=== PATIENT | female | born 1945 | race Asian ===

== ENCOUNTER 2021-04-09 17:39 | Emergency (ER) | payer OTHER ==
[2021-04-16 15:08] LABS: PLATELET COUNT 344 K/uL (152-353)
[2021-04-16 15:09] LABS: POTASSIUM 4.7 mmol/L (3.6-5.2)
== END 2021-04-09 19:30 | disposition other institution (70) ==
LOC: ED 17:39
PROVIDERS: Family Medicine
DX: F99 Mental disorder, not otherwise specified (principal); F41.8 Other specified anxiety disorders; Z11.52 Encounter for screening for COVID-19; Z04.6 Encounter for general psychiatric examination, requested by authority
CPT/HCPCS: 36415; 80048; 85027; 87635; 93005; 99283; U0003